=== PATIENT | male | born 2000 | race African-American/Black ===

== ENCOUNTER → 2024-04-19 | Outpatient (CLI) | payer OTHER, SELFPAY ==
--- NOTE | 2024-04-19 15:32 | HMCIMG ---
CT of the left foot Clinical Information: Effusion, unspecified foot Comparison: None Findings: There is status post first bunionectomy with expected postoperative changes of the first distal metatarsal. No complications are seen. There are no acute fractures otherwise and the soft tissues are preserved. Impression: status post bunionectomy.
== END | disposition home or self-care (01) ==
LOC: RAH 13:44
PROVIDERS: ATTEND Physician Assistant Medical
DX: M25.475 Effusion, left foot (principal); Z98.890 Other specified postprocedural states
CPT/HCPCS: 73700